=== PATIENT | female | born 1960 | race African-American/Black ===

== ENCOUNTER 2017-04-23 23:17 | Inpatient (IN) ==
[2017-04-24 00:56] LABS: Basophils # 0.1 10*3/uL (0.0-0.2); Basophils % 0.4 % (0.0-0.8); Eosinophils % 0.1 % (0.00-10.9); Hematocrit 18.6 VOL% (35.7-47.0); Immature Granulocytes Absolute 0.25 #; Lymphocytes # 3.4 10*3/uL (1.4-4.0); Lymphocytes % 27.4 % (21.3-54.2); Mean Corpuscular HGB Conc 37.6 GM/DL (32-36); Mean Corpuscular Hemoglobin 29 PG (27-34); Mean Corpuscular Volume 78.2 FL (87-102); Mean Platelet Volume 10.7 FL (9.6-12.0); Monocytes # 1.7 10*3/uL (0.11-0.8); Monocytes % 13.6 % (1.7-12.7); NRBC # 13.63 10*3/uL; Neutrophils % 56.5 % (38.7-73.9); Platelet Count 306 T/CUMM (130-400); Red Blood Count 2.38 MC/CUMM (3.8-5.5); Red Cell Distribution Width 21.9 % (9.3-17.3); White Blood Count 12.4 T/CUMM (4-12)
[2017-04-24 01:46] LABS: Albumin 3.8 G/DL (3.4-5.0); Bilirubin,Total 5.8 MG/DL (0.2-1.0); Calcium 8.9 MG/DL (8.5-10.1); Osmolality,Calculated 266.1 MOS/KG (273-304); Potassium 3.1 MMOL/L (3.5-5.1); Total Protein 7.8 G/DL (6.4-8.3)
[2017-04-24] MEDS ORDERED: ALBUTEROL/IPRATROPIUM 3 ML NEB RESP TX STA (02:20)
[2017-04-24] MEDS ORDERED: cefTRIAXone 1,000 MG in SODIUM CHLORIDE 0.9% 100 ML IV STA (02:20)
[2017-04-24] MEDS ORDERED: cefTRIAXone 1,000 MG VIAL ONE (02:36)
[2017-04-24] MEDS ORDERED: SODIUM CHLORIDE 0.9% 100 ML IV ONE (02:36)
[2017-04-24 03:52] LABS: Band Neutrophils 2 % (0-10); Lymphocytes 42 % (20-55); Myelocytes 1 %; Nucleated Red Blood Cells 190 (0-5); Segmented Neutrophils 49 % (50-85); Total Cells Counted 100
[2017-04-24 03:53] LABS: Anisocytosis 2+; Hypochromasia 2+
[2017-04-24 03:56] LABS: Target Cells 2+
[2017-04-24 03:57] LABS: Basophilic Stippling 1+; Platelet Estimate Normal; Sickle Cells 1+
[2017-04-24] MEDS ORDERED: SODIUM CHLORIDE 0.9% 250 ML IV PRN (04:46)
[2017-04-24] MEDS ORDERED: ACETAMINOPHEN 325 MG TABLET PO PRN (04:47)
[2017-04-24] MEDS ORDERED: ONDANSETRON 4 MG/2 ML VIAL IV PRN (04:47)
[2017-04-24] MEDS ORDERED: ALBUTEROL/IPRATROPIUM 3 ML NEB RESP TX PRN (04:50)
[2017-04-24] MEDS: LEVOFLOXACIN INJ 750 MG in PREMIX 1 EACH IV SCH (06:06)
[2017-04-24] MEDS ORDERED: INFLUENZA VIRUS VACCINE 0.5 ML SYRINGE IM ONE (06:35)
[2017-04-24] MEDS ORDERED: PNEUMOCOCCAL VACCINE (13 VALENT) 0.5 ML SYRINGE IM ONE (06:35)
[2017-04-24] MEDS ORDERED: POTASSIUM CHLORIDE 10 MEQ TABLET PO ONE (06:39)
[2017-04-24] MEDS ORDERED: ENOXAPARIN 40 MG/0.4 ML SYRINGE SUBCUT SCH (09:00)
[2017-04-24] MEDS ORDERED: POTASSIUM CHLORIDE 20 MEQ TABLET PO ONE (15:04)
[2017-04-24] MEDS: methylPREDNISolone SOD SUC 40 MG/1 ML VIAL IV SCH (16:23)
[2017-04-24 19:23] LABS: Hematocrit 27.5 VOL% (35.7-47.0)
[2017-04-24 19:25] LABS: Hemoglobin 10.2 GM/DL (12.0-16.0)
[2017-04-24] MEDS: ALBUTEROL/IPRATROPIUM 3 ML NEB RESP TX SCH (19:45)
[2017-04-25] MEDS: ALBUTEROL/IPRATROPIUM 3 ML NEB RESP TX SCH ×4 (00:41→20:14)
[2017-04-25] MEDS: methylPREDNISolone SOD SUC 40 MG/1 ML VIAL IV SCH ×2 (03:20→15:34)
[2017-04-25] MEDS: LEVOFLOXACIN INJ 750 MG in PREMIX 1 EACH IV SCH (05:17)
[2017-04-25 06:45] LABS: Basophils % 0.5 % (0.0-0.8); Hematocrit 28.2 VOL% (35.7-47.0); Hemoglobin 10.1 GM/DL (12.0-16.0); Immature Granulocytes % 1.8 %; Immature Granulocytes Absolute 0.12 #; Lymphocytes # 1.4 10*3/uL (1.4-4.0); Lymphocytes % 21.9 % (21.3-54.2); Mean Corpuscular HGB Conc 35.8 GM/DL (32-36); Mean Corpuscular Hemoglobin 30 PG (27-34); Mean Corpuscular Volume 82.5 FL (87-102); Mean Platelet Volume 11.6 FL (9.6-12.0); Monocytes # 0.6 10*3/uL (0.11-0.8); Monocytes % 9.1 % (1.7-12.7); NRBC # 11.42 10*3/uL; Neutrophils # 4.4 10*3/uL (1.4-7.4); Neutrophils % 66.7 % (38.7-73.9); Platelet Count 349 T/CUMM (130-400); Red Blood Count 3.42 MC/CUMM (3.8-5.5); Red Cell Distribution Width 21.2 % (9.3-17.3); White Blood Count 6.6 T/CUMM (4-12)
[2017-04-25 07:09] LABS: Howell-Jolly Bodies Few; Lymphocytes 31 % (20-55); Macrocytosis 2+; Nucleated Red Blood Cells 271 (0-5); Pappenheimer Bodies Few; Polychromasia 2+; Segmented Neutrophils 62 % (50-85); Sickle Cells 2+; Target Cells 1+; Total Cells Counted 100
[2017-04-25 07:10] LABS: Giant Platelets Few; Platelet Estimate Adequate
[2017-04-25 07:21] LABS: Calcium 8.9 MG/DL (8.5-10.1); Osmolality,Calculated 269.8 MOS/KG (273-304); Potassium 4.6 MMOL/L (3.5-5.1)
[2017-04-26] MEDS: ALBUTEROL/IPRATROPIUM 3 ML NEB RESP TX SCH ×2 (00:20→07:48)
[2017-04-26] MEDS: methylPREDNISolone SOD SUC 40 MG/1 ML VIAL IV SCH (03:25)
[2017-04-26] MEDS: LEVOFLOXACIN INJ 750 MG in PREMIX 1 EACH IV SCH (06:29)
[2017-04-26 09:45] VITALS: BP 106/65
== END 2017-04-26 12:25 | disposition home or self-care (01) | DRG 203 ==
LOC: N.ED 23:17 → SUATTDRO 04-24 04:44 → N.EDINP 04-24 04:44 → N.5E 04-24 05:33
PROVIDERS: ADMIT Internal Medicine; ATTEND Internal Medicine